=== PATIENT | male | born 1970 | race Caucasian/White ===

== ENCOUNTER 2024-03-01 03:19 | Emergency (ER) | payer SELFPAY ==
[2024-03-01 03:33] VITALS: BP 152/94; PULSE 77; TEMP 36.6; O2SAT 99; BMI 28.8
--- NOTE | 2024-03-01 03:40 | CT_ITS ---
[address] [address] Patient Name: JOSÉ MIGUEL HENDERSON MRN: [id number] date: 1970 Sex: M Assigned Patient Location: ER Current Patient Location: Accession/Order Number: [id number] Exam Date: 03/01/2024 04:30 Report Date: 03/01/2024 05:29 At the request of: KEESHA STOVALL Procedure: CT abdomen pelvis w con EXAMINATION: CT abdomen pelvis w con HISTORY: LLQ pain COMPARISON: CT abdomen pelvis 02/17/2020 TECHNIQUE: Axial, Coronal, and Sagittal images were obtained without and/or with IV contrast as indicated by examination type. Dose reduction techniques were achieved by using automated exposure control and/or adjustment of mA and/or kV according to patient size and/or use of iterative reconstruction technique. FINDINGS: LUNG BASES: No visible pulmonary or pleural disease. LIVER: No enlargement, atrophy, suspicious density, or significant focal lesion. BILIARY: No dilatation or calcification. PANCREAS: No lesion, fluid collection, or abnormal duct dilatation. SPLEEN: No enlargement or focal lesion. ADRENALS: No mass or enlargement. KIDNEYS: 4 mm obstructing stone within left ureter at the junction of mid and distal ureter resulting in moderate hydronephrosis. Additional small nonobstructing stones within left kidney. Projecting laterally from superior pole of right kidney is a new 1.6 cm mass versus dense cyst. BOWEL/MESENTERY: No visible mass, obstruction, or bowel wall thickening. Mild diverticulosis of distal colon. Normal appendix. AORTA/VASCULAR: No aneurysm or dissection. RETROPERITONEUM: No mass or adenopathy. LYMPH NODES: No adenopathy. URINARY BLADDER: No visible focal wall thickening, lesion, or calculus. PELVIC ORGANS: No visible mass. Pelvic organs appropriate for patient age. ABDOMINAL WALL: No mass or hernia. BONES: No bony lesion or fracture. OTHER: Negative. CT/CT abdomen pelvis w con IMPRESSION: 1. Moderate left hydronephrosis secondary to an obstructing 4 mm stone within the middistal ureter. Additional nonobstructing small left kidney stones. 2. New 1.6 cm mass versus hemorrhagic cyst projecting from superior pole of right kidney. Nonemergent further evaluation with ultrasound or CT abdomen without and with IV contrast to evaluate enhancement characteristics is recommended. Electronically authenticated by: NOHEMI ACEVEDO Date: 03/01/2024 05:29
[2024-03-01 03:55] LABS: Basophils Absolute Auto 0.1 10^3/uL (0.0-0.1); Basophils Percent Auto 0.6 % (0.2-2.0); Eosinophils Absolute Auto 0.1 10^3/uL (0.0-0.7); Eosinophils Percent Auto 0.8 % (0.9-7.0); Hematocrit 46.4 % (42.0-54.0); Hemoglobin 15.8 g/dL (14.0-18.0); Immature Granulocytes Abs Auto 0.04 10^3/uL (0.00-0.03); Immature Granulocytes Pct Auto 0.4 % (0.0-0.5); Lymphocytes Absolute Auto 1.2 10^3/uL (1.2-3.8); Lymphocytes Percent Auto 10.9 % (20.5-60.0); Mean Corpuscular HGB Conc 34.1 g/dL (29.9-35.2); Mean Corpuscular Hemoglobin 29.6 pg (25.9-34.0); Mean Corpuscular Volume 86.9 fL (80.0-94.0); Mean Platelet Volume 10.2 fL (9.5-13.5); Monocytes Absolute Auto 0.7 10^3/uL (0.3-0.8); Monocytes Percent Auto 6.8 % (1.7-12.0); Neutrophils Absolute Auto 8.6 10^3/uL (1.4-6.5); Neutrophils Percent Auto 80.5 % (43.0-75.0); Platelet Count 196 10^3/uL (150-450); Red Blood Count 5.34 10^6/uL (4.70-6.10); Red Cell Distribution Width 12.5 % (11.0-15.0); White Blood Count 10.6 10^3/uL (4.0-11.0)
[2024-03-01 03:57] LABS: Bilirubin Urine NEGATIVE (NEGATIVE); Blood Urine SMALL (NEGATIVE); Clarity Urine CLEAR (CLEAR); Color Urine YELLOW (YELLOW); Glucose Urine UA NEGATIVE (NEGATIVE); Ketones Urine NEGATIVE (NEGATIVE); Leukocyte Esterase Urine NEGATIVE (NEGATIVE); Nitrite Urine NEGATIVE (NEGATIVE); Protein Urine NEGATIVE (NEG/TRACE); Specific Gravity Urine 1.025 (1.005-1.025); Urobilinogen Urine 0.2 EU/dL (0.2-1.0)
[2024-03-01 03:59] LABS: Urine Microscopic Indicated YES
[2024-03-01 04:03] LABS: RBC Urine 0-2 #/HPF (0-2)
[2024-03-01 04:04] LABS: Bacteria Urine TRACE #/HPF (NONE SEEN); Cast Seen? NONE SEEN #/LPF (NONE SEEN); Crystals Seen? None Seen #/HPF (None Seen); Mucus Urine SMALL (NONE SEEN); Squamous Epithelial Cell Urine RARE #/LPF (NONE/RARE); Urine Culture Indicated NO
[2024-03-01 04:10] LABS: Alanine Aminotransferase 35 U/L (16-63); Albumin Globulin Ratio 1.1; Albumin Level 3.7 g/dL (3.4-5.0); Alkaline Phosphatase 67 U/L (46-116); Anion Gap 15.1; Aspartate Amino Transferase 18 U/L (15-37); BUN Creatinine Ratio 13.5; Bilirubin Total 0.7 mg/dL (0.2-1.0); Calcium 9.4 mg/dL (8.5-10.1); Carbon Dioxide 23.1 mmol/L (21.0-32.0); Chloride 104 mmol/L (98-107); Estimated GFR (African America >60 (>=60); Estimated GFR (Non-African Ame 50 (>=60); Globulin 3.4 g/dL; Glucose 106 mg/dL (74-106); Potassium 4.2 mmol/L (3.5-5.1); Sodium 138 mmol/L (136-145); Total Protein 7.1 g/dL (6.4-8.2)
[2024-03-01] MEDS: KETOROLAC TROMETHAMINE 30 MG/ML VIAL IVP (04:14)
[2024-03-01] MEDS: 0.9 % SODIUM CHLORIDE 1,000 ML 999 ML IV (05:15)
[2024-03-01 05:29] VITALS: BP 161/95; PULSE 62; O2SAT 94
--- NOTE | 2024-03-01 05:31 | ED_ITS ---
HPI HPI - General Adult General Chief complaint: Abdominal Pain Stated complaint: ABD PAIN Time Seen by Provider: 03/01/24 03:36 Source: patient Mode of arrival: walk-in Limitations: no limitations History of Present Illness HPI narrative: 53-year-old male to the emergency department with chief complaint of left lower quadrant abdominal pain. Patient reports that two weeks ago he had similar pain in the last few days and went away. Tonight he was awoken suddenly in the night with severe sharp pain in his left lower quadrant. He denies any fever, sweats, chills. He denies any blood in the urine, dysuria, urgency, frequency. He denies any diarrhea or blood in the stool. He reports a history of kidney stones with similar symptoms. No history of diverticular disease. Related Data Home Medications ?Medication ?Instructions ?Recorded ?Confirmed amlodipine 10 mg tablet mg 03/01/24 losartan 50 mg tablet mg 03/01/24 Previous Rx's ?Medication ?Instructions ?Recorded ondansetron 4 mg disintegrating 4 mg PO Q8H PRN nausea and 03/01/24 tablet vomiting 4 days #16 tabs oxycodone-acetaminophen 5 mg-325 1 tab PO Q6H PRN pain #12 tabs 03/01/24 mg tablet (Percocet) tamsulosin 0.4 mg capsule (Flomax) 0.4 mg PO DAILY #14 caps 03/01/24 Allergies Allergy/AdvReac Type Severity Reaction Status Date / Time No Known Drug Allergies Allergy Verified 03/01/24 03:59 Opioid HPI Opioid Management Most Recent Opioid Data: Last Pain Scale 5 03/01/24 04:14 Last DEC Pain Assessment 03/01/24 04:14 Review of Systems ROS Status of ROS 10 or more systems reviewed and unremark able except as noted in history and below Exam Narrative Exam Narrative: VITALS: I have reviewed the triage vital signs. GENERAL: Well developed, well appearing adult in no acute distress. NEURO: Alert and oriented. Moves all extremities. Face is symmetric and expressive. EYES: PERRL. No scleral icterus or conjunctival injection. No discharge. HENT: Normocephalic, atraumatic. Hearing is grossly intact. Nares grossly patent and without discharge. Mucous membranes moist. NECK: No JVD. Patient moves neck without restriction. CARDIO: Rhythm regular. Normal rate. No murmur, rub, or gallop. Pulses equal bilaterally in the upper and lower extremity. No lower extremity edema. PULM: Lungs clear to auscultation in all humphreys. No wheezes, rales, or rhonchi. No conversational dyspnea. No splinting, stridor, or accessory muscle use. GI/: Abdomen is soft. Mild left lower quadrant ttenderness. No rebound or guarding. EXTREMITIES: Symmetric muscle bulk. No joint swelling. No clubbing, cyanosis, or deformity. SKIN: Warm and dry. Normal turgor. No rash or lesions appreciated. PSYCH: Mood, affect, and interaction is appropriate to the setting. Constitutional Vital Signs, click to edit/add: Last Vital Signs Temp 97.9 F 03/01/24 03:33 Pulse 62 03/01/24 05:29 Resp 14 03/01/24 05:29 BP 161/95 H 03/01/24 05:29 Pulse Ox 94 L 03/01/24 05:29 O2 Del Method Room Air 03/01/24 05:29 Course Vital Signs Vital signs: Vital Signs Temperature 97.9 F 03/01/24 03:33 Pulse Rate 77 03/01/24 03:33 Respiratory Rate 16 03/01/24 03:33 Blood Pressure 152/94 H 03/01/24 03:33 Pulse Oximetry 99 03/01/24 03:33 Temperature 97.9 F 03/01/24 03:33 Pulse Rate 62 03/01/24 05:29 Respiratory Rate 14 03/01/24 05:29 Blood Pressure 161/95 H 03/01/24 05:29 Pulse Oximetry 94 L 03/01/24 05:29 Oxygen Delivery Method Room Air 03/01/24 05:29 Medical Decision Making [facility] Narrative Medical decision making narrative: 53-year-old male to the emergency department with chief complaint of left lower quadrant abdominal pain. Vital stable, patient is afebrile. CT scan of the abdomen was ordered. Basic labs. Toradol for discomfort. Patient agrees with this plan. Laboratory review noted. No major abnormalities. UA is without evidence of infection. CT scan shows a 4 mm mid ureteral stone. He also has incidentally visualized concerning cysts. Findings were discussed with the patient. He is given follow-up with his urologist in [place]. Discussed the incidental cyst finding and need for follow- up. Flomax, Zofran, oxycodone were prescribed. He'll use Tylenol and ibuprofen for breakthrough pain. Return precautions were discussed. All questions were answered. The patient was discharged home. Medical Records Medical records reviewed: Yes I reviewed the patient's medical records Lab Data Lab results reviewed: Yes I reviewed the patient's lab results Labs: Lab Results 03/01/24 03/01/24 Range/Units 03:40 03:48 WBC 10.6 (4.0-11.0) 10^3/uL RBC 5.34 (4.70-6.10) 10^6/uL Hgb 15.8 (14.0-18.0) g/dL Hct 46.4 (42.0-54.0) % MCV 86.9 (80.0-94.0) fL MCH 29.6 (25.9-34.0) pg MCHC 34.1 (29.9-35.2) g/dL RDW 12.5 (11.0-15.0) % Plt Count 196 (150-450) 10^3/uL MPV 10.2 (9.5-13.5) fL Neut % (Auto) 80.5 H (43.0-75.0) % Lymph % (Auto) 10.9 L (20.5-60.0) % [place] % (Auto) 6.8 (1.7-12.0) % Eos % (Auto) 0.8 L (0.9-7.0) % Baso % (Auto) 0.6 (0.2-2.0) % Neut # (Auto) 8.6 H (1.4-6.5) 10^3/uL Lymph # (Auto) 1.2 (1.2-3.8) 10^3/uL [place] # (Auto) 0.7 (0.3-0.8) 10^3/uL Eos # (Auto) 0.1 (0.0-0.7) 10^3/uL Baso # (Auto) 0.1 (0.0-0.1) 10^3/uL Abs Immat Gran (auto) 0.04 H (0.00-0.03) 10^3/uL Imm/Tot Granulo (auto) 0.4 (0.0-0.5) % Sodium 138 (136-145) mmol/L Potassium 4.2 (3.5-5.1) mmol/L Chloride 104 (98-107) mmol/L Carbon Dioxide 23.1 (21.0-32.0) mmol/L Anion Gap 15.1 BUN 20.0 H (7.0-18.0) mg/dL Creatinine 1.48 H (0.70-1.30) mg/dL Est GFR ( Amer) >60 (>=60) Est GFR (Non-Af Amer) 50 L (>=60) BUN/Creatinine Ratio 13.5 Glucose 106 (74-106) mg/dL Calcium 9.4 (8.5-10.1) mg/dL Total Bilirubin 0.7 (0.2-1.0) mg/dL AST 18 (15-37) U/L ALT 35 (16-63) U/L Alkaline Phosphatase 67 (46-116) U/L Total Protein 7.1 (6.4-8.2) g/dL Albumin 3.7 (3.4-5.0) g/dL Globulin 3.4 g/dL Albumin/Globulin Ratio 1.1 Urine Color Yellow (YELLOW) Urine Clarity Clear (CLEAR) Urine pH 6.0 (5.0-9.0) Ur Specific [place] 1.025 (1.005-1.025) Urine Protein Negative (NEG/TRACE) mg/dL Urine Glucose (UA) Negative (NEGATIVE) mg/dL Urine Ketones Negative (NEGATIVE) mg/dL Urine Occult Blood Small A (NEGATIVE) Urine Nitrite Negative (NEGATIVE) Urine Bilirubin Negative (NEGATIVE) Urine Urobilinogen 0.2 (0.2-1.0) EU/dL Ur Leukocyte Esterase Negative (NEGATIVE) Urine RBC 0-2 (0-2) #/HPF Urine WBC 2-5 A (NONE SEEN) #/HPF Ur Squamous Epith Cells Rare (NONE/RARE) #/LPF Urine Crystals None seen (None Seen) #/HPF Urine Bacteria Trace A (NONE SEEN) #/HPF Urine Casts None seen (NONE SEEN) #/LPF Urine Mucus Small A (NONE SEEN) Ur Culture Indicated? No Imaging Data CT scan - abdomen: Radiologist's impression: ITS Impressions Abdomen/Pelvis CT 03/01/24 03:40 IMPRESSION: 1. Moderate left hydronephrosis secondary to an obstructing 4 mm stone within the middistal ureter. Additional nonobstructing small left kidney stones. 2. New 1.6 cm mass versus hemorrhagic cyst projecting from superior pole of right kidney. Nonemergent further evaluation with ultrasound or CT abdomen without and with IV contrast to evaluate enhancement characteristics is recommended. Electronically authenticated by: NOHEMI ACEVEDO Date: 03/01/2024 05:29 Discharge Plan Discharge Stand Alone Forms: Portal Instructions Chief Complaint: Abdominal Pain Clinical Impression: Kidney stone, Renal cyst Patient Disposition: Home, Self-Care Time of Disposition Decision: 05:43 Condition: Good Mode of Transportation: Private Vehicle Prescriptions / Home Meds: New tamsulosin [Flomax] 0.4 mg capsule 0.4 mg PO DAILY Qty: 14 0RF ondansetron 4 mg tablet,disintegrating 4 mg PO Q8H PRN (Reason: nausea and vomiting) 4 Days Qty: 16 0RF oxycodone-acetaminophen [Percocet] 5-325 mg tablet 1 tab PO Q6H PRN (Reason: pain) Qty: 12 0RF No Action losartan 50 mg tablet amlodipine 10 mg tablet Print Language: Korean Instructions: Kidney Stones (ED), Kidney Cyst (ED) Additional Instructions: Call the office of urologist to arrange for follow-up within the next week. Take medications as prescribed. Obtain follow-up for incidental finding of renal cyst. Referrals: Physician,Non-Staff, MD [Primary Care Provider] - 1 week (Call the office of Dr. Andrews to arrange for follow-up in the next week)
== END 2024-03-01 06:09 | disposition home or self-care (01) ==
PROVIDERS: Emergency Provider Student in an Organized Health Care Education/Training Program
DX: N13.2 Hydronephrosis with renal and ureteral calculous obstruction (principal); N28.1 Cyst of kidney, acquired
CPT/HCPCS: 36415; 74177; 80053; 81001; 85025; 96374; 99284; Q9967